=== PATIENT | female | born 1985 | race Caucasian/White ===

== ENCOUNTER 2020-07-07 13:57 | Emergency (ER) | payer OTHER ==
[2020-07-07 14:21] LABS: #Basophils 0.1 10x3/uL (0.0-0.2); #Eosinphils 0.1 10x3/uL (0.0-0.5); #Monocytes 0.5 10x3/uL (0.0-1.1); #Neutrophils 4.9 10x3/uL (1.5-8.4); %Basophils 0.7 % (0.0-2.0); %Eosinophils 1.2 % (0.0-6.0); %Lymphocytes 35.3 % (18.0-47.0); %Monocytes 6.1 % (0.0-10.0); %Neutrophils 56.4 % (40.0-75.0); Hemoglobin 16.2 g/dL (12.0-15.5); Mean Corpuscular HGB CONC 34.6 g/dL (32.0-36.0); Mean Corpuscular Hemoglobin 31.5 pg (27.0-33.0); Mean Corpuscular Volume 91.1 fl (81.6-98.3); Mean Platelet Volume 10.3 fl (7.4-10.4); Platelet Count 248 10x3/uL (150-450); RBC Distribution Width 12.3 % (11.5-14.5); Red Blood Cell (RBC) Count 5.14 10x6/uL (3.90-5.03); White Blood Cell (WBC) Count 8.7 10x3/uL (3.5-10.5)
[2020-07-07 14:28] LABS: ALT (SGPT) 16 U/L (8-55); AST (SGOT) 13 U/L (5-34); Alkaline Phosphatase 48 U/L (40-110); Anion Gap 16 mmol/L (10-20); BUN (Urea Nitrogen) 13 mg/dL (7.0-18.7); Bilirubin, Total 0.6 mg/dL (0.2-1.2); CK (CPK) 61 U/L (29-168); Calc. Creatinine Clearance 0 mL/min (70-130); Calcium 9.6 mg/dL (7.8-10.44); Carbon Dioxide 27 mmol/L (22-29); Chloride 99 mmol/L (98-107); Globulin 3.1 g/dL (2.4-3.5); Glucose 90 mg/dL (70-105); Lipase 42 U/L (8-78); Potassium 3.8 mmol/L (3.5-5.1); Protein, Total 8.1 g/dL (6.0-8.3); Sodium 138 mmol/L (136-145)
[2020-07-07] MEDS ORDERED: Ondansetron PF 4 MG/2 ML Vial ONE (14:32)
[2020-07-07] MEDS ORDERED: Pantoprazole 40 MG VIAL ONE (14:32)
[2020-07-07] MEDS ORDERED: Morphine 4 MG/ML VIAL ONE (14:32)
[2020-07-07 14:44] LABS: BHCG - Serum Negative (NEGATIVE); Pregs Control Background? CLEAR/WHITE (CLR/WHITE); Pregs Control Bar Appear? YES (CONTROL BAR)
[2020-07-07] MEDS ORDERED: Ketorolac Tromethamine 15 MG/ML VIAL ONE (15:09)
== END 2020-07-07 17:10 | disposition home or self-care (01) ==
LOC: CSHERS 13:57
DX: K52.9 Noninfective gastroenteritis and colitis, unspecified (principal)
CPT/HCPCS: 71045; 74177; 80053; 82550; 83690; 84484; 84703; 85025; 85379; 93005; 96372; 96374; 96375; C9113; J0500; J1885; J2270; J2405

== ENCOUNTER 2020-07-13 12:54 | Inpatient (IN) | payer OTHER ==
[2020-07-13 13:58] LABS: #Eosinphils 0.1 10x3/uL (0.0-0.5); #Monocytes 0.4 10x3/uL (0.0-1.1); #Neutrophils 3.1 10x3/uL (1.5-8.4); %Basophils 0.4 % (0.0-2.0); %Eosinophils 1.7 % (0.0-6.0); %Lymphocytes 33.8 % (18.0-47.0); %Monocytes 6.8 % (0.0-10.0); %Neutrophils 57.1 % (40.0-75.0); Hemoglobin 13.7 g/dL (12.0-15.5); Mean Corpuscular HGB CONC 34.3 g/dL (32.0-36.0); Mean Corpuscular Hemoglobin 31.6 pg (27.0-33.0); Mean Corpuscular Volume 92.4 fl (81.6-98.3); Mean Platelet Volume 11.3 fl (7.4-10.4); Platelet Count 171 10x3/uL (150-450); RBC Distribution Width 11.9 % (11.5-14.5); Red Blood Cell (RBC) Count 4.33 10x6/uL (3.90-5.03); White Blood Cell (WBC) Count 5.4 10x3/uL (3.5-10.5)
[2020-07-13 14:17] LABS: ALT (SGPT) 14 U/L (8-55); AST (SGOT) 17 U/L (5-34); Albumin 4.1 g/dL (3.5-5.0); Alkaline Phosphatase 34 U/L (40-110); Anion Gap 16 mmol/L (10-20); BUN (Urea Nitrogen) 7 mg/dL (7.0-18.7); Bilirubin, Total 0.5 mg/dL (0.2-1.2); Calc. Creatinine Clearance 0 mL/min (70-130); Calcium 9.1 mg/dL (7.8-10.44); Carbon Dioxide 21 mmol/L (22-29); Chloride 106 mmol/L (98-107); Globulin 2.8 g/dL (2.4-3.5); Glucose 69 mg/dL (70-105); Lipase 47 U/L (8-78); Potassium 4.5 mmol/L (3.5-5.1); Protein, Total 6.9 g/dL (6.0-8.3); Sodium 138 mmol/L (136-145)
[2020-07-13 14:20] LABS: BHCG - Serum Negative (NEGATIVE); Pregs Control Background? CLEAR/WHITE (CLR/WHITE); Pregs Control Bar Appear? YES (CONTROL BAR)
[2020-07-13] MEDS ORDERED: Morphine 4 MG/ML VIAL ONE (14:24)
[2020-07-13] MEDS ORDERED: Ondansetron PF 4 MG/2 ML Vial ONE (14:24)
[2020-07-13] MEDS: Morphine 2 MG/ML VIAL SLOW IVP PRN ×2 (18:42→23:06)
[2020-07-13] MEDS: Lactated Ringer's 1,000 ML IV SCH (18:42)
[2020-07-13] MEDS: Ondansetron PF 4 MG/2 ML Vial IVP PRN (18:42)
[2020-07-13] MEDS: Pantoprazole 40 MG VIAL IVP SCH (21:29)
[2020-07-14] MEDS: Ondansetron PF 4 MG/2 ML Vial IVP PRN ×2 (02:32→09:25)
[2020-07-14] MEDS ORDERED: Promethazine HCl 12.5 MG in Sodium Chloride 0.9% 50 ML IVPB SCH (04:15)
[2020-07-14 05:41] LABS: #Eosinphils 0.2 10x3/uL (0.0-0.5); #Monocytes 0.5 10x3/uL (0.0-1.1); #Neutrophils 4.9 10x3/uL (1.5-8.4); %Basophils 0.5 % (0.0-2.0); %Eosinophils 2.1 % (0.0-6.0); %Lymphocytes 24.4 % (18.0-47.0); %Neutrophils 65.9 % (40.0-75.0); Mean Corpuscular HGB CONC 34.1 g/dL (32.0-36.0); Mean Corpuscular Hemoglobin 31.9 pg (27.0-33.0); Mean Corpuscular Volume 93.6 fl (81.6-98.3); Mean Platelet Volume 10.9 fl (7.4-10.4); Platelet Count 149 10x3/uL (150-450); RBC Distribution Width 11.8 % (11.5-14.5); Red Blood Cell (RBC) Count 4.07 10x6/uL (3.90-5.03); White Blood Cell (WBC) Count 7.5 10x3/uL (3.5-10.5)
[2020-07-14 05:50] LABS: ALT (SGPT) 11 U/L (8-55); AST (SGOT) 14 U/L (5-34); Albumin 3.6 g/dL (3.5-5.0); Alkaline Phosphatase 30 U/L (40-110); Anion Gap 16 mmol/L (10-20); BUN (Urea Nitrogen) 8 mg/dL (7.0-18.7); Bilirubin, Total 0.5 mg/dL (0.2-1.2); Calc. Creatinine Clearance 96 mL/min (70-130); Calcium 8.5 mg/dL (7.8-10.44); Carbon Dioxide 18 mmol/L (22-29); Chloride 107 mmol/L (98-107); Globulin 2.4 g/dL (2.4-3.5); Potassium 4.3 mmol/L (3.5-5.1); Sodium 137 mmol/L (136-145)
[2020-07-14 05:58] LABS: Glucose 56 mg/dL (70-105)
[2020-07-14] MEDS: Lactated Ringer's 1,000 ML IV SCH ×2 (08:43→21:15)
[2020-07-14] MEDS: Pantoprazole 40 MG VIAL IVP SCH ×2 (08:43→21:15)
[2020-07-14] MEDS: Ondansetron ODT 4 MG TAB PO PRN ×2 (14:10→21:19)
[2020-07-14 15:31] LABS: SARS-CoV-2 PCR by NAA Not Detected (NotDetected)
[2020-07-14] MEDS ORDERED: GoLYTELY 4,000 ml Bottle PO SCH (19:15)
[2020-07-14] MEDS ORDERED: Promethazine HCl 12.5 MG in Sodium Chloride 0.9% 50 ML IVPB PRN (21:14)
[2020-07-15] MEDS: Pantoprazole 40 MG VIAL IVP SCH ×2 (09:31→22:09)
[2020-07-15] MEDS: Lactated Ringer's 1,000 ML IV SCH (10:22)
[2020-07-15] MEDS: Morphine 2 MG/ML VIAL SLOW IVP PRN (15:28)
[2020-07-15] MEDS ORDERED: PROPOFOL 40 ML ONE (18:38)
[2020-07-15] MEDS ORDERED: Lidocaine 2% PF 100 mg/5 ml Syringe ONE (19:06)
[2020-07-15] MEDS ORDERED: PROPOFOL 20 ML ONE (19:20)
[2020-07-15] MEDS: Ondansetron PF 4 MG/2 ML Vial IVP PRN (23:43)
[2020-07-16] MEDS ORDERED: Acetaminophen 325 MG TAB PO SCH ×2 (00:15→23:00)
[2020-07-16] MEDS: Lactated Ringer's 1,000 ML IV SCH ×2 (00:54→14:34)
[2020-07-16] MEDS ORDERED: Lactated Ringer's 1,000 ML IV SCH (08:00)
[2020-07-16] MEDS: Pantoprazole 40 MG VIAL IVP SCH ×2 (08:09→20:59)
[2020-07-16] MEDS: Ondansetron PF 4 MG/2 ML Vial IVP PRN ×3 (08:09→22:42)
[2020-07-16] MEDS: Morphine 2 MG/ML VIAL SLOW IVP PRN ×2 (10:45→14:35)
[2020-07-16 11:25] LABS: Complement-C4 12.9 mg/dL (15-57)
[2020-07-16 18:38] LABS: H. pylori IgA ABS Less than 9.0 units (0.0-8.9); H. pylori IgG ABS 0.12 (0.00-0.79); H. pylori IgM ABS Less than 9.0 units (0.0-8.9)
[2020-07-17 05:18] LABS: Anion Gap 11 mmol/L (10-20); BUN (Urea Nitrogen) 7 mg/dL (7.0-18.7); Calc. Creatinine Clearance 89 mL/min (70-130); Calcium 8.9 mg/dL (7.8-10.44); Carbon Dioxide 26 mmol/L (22-29); Chloride 107 mmol/L (98-107); Glucose 97 mg/dL (70-105); Potassium 4.4 mmol/L (3.5-5.1); Sodium 140 mmol/L (136-145)
[2020-07-17 05:28] VITALS: BMI 22.4
[2020-07-17] MEDS: Lactated Ringer's 1,000 ML IV SCH ×2 (06:31→22:08)
[2020-07-17] MEDS: Pantoprazole 40 MG VIAL IVP SCH ×2 (08:37→20:53)
[2020-07-17] MEDS: Ondansetron PF 4 MG/2 ML Vial IVP PRN (12:02)
[2020-07-17] MEDS: Morphine 2 MG/ML VIAL SLOW IVP PRN ×2 (14:26→20:53)
[2020-07-17 14:56] LABS: ANA Symphony (Qualitative) Negative (Negative); ANA Symphony (Quantitative) 0.1 Ratio (< 0.7 Negative); dsDNA IgG Antibody 2.4 IU/mL (<10 Negative)
[2020-07-17] MEDS ORDERED: Ketorolac Tromethamine 30 MG/ML VIAL IVP PRN ×2 (15:37→21:01)
[2020-07-17] MEDS ORDERED: HYDROcodone/Acetaminophen 5/325 mg Tablet PO PRN (15:38)
[2020-07-17] MEDS ORDERED: traMADol HCl 50 MG TAB PO PRN (21:02)
[2020-07-17] MEDS ORDERED: Acetaminophen 500 MG TAB PO PRN (21:02)
[2020-07-17] MEDS ORDERED: Scopolamine 1.5 mg/72 hour Patch TD SCH (21:30)
[2020-07-17] MEDS ORDERED: Ketorolac Tromethamine 30 MG/ML VIAL IVP SCH (21:30)
[2020-07-18] MEDS ORDERED: Ondansetron PF 4 MG/2 ML Vial ONE (07:17)
[2020-07-18] MEDS ORDERED: PROPOFOL 20 ML ONE (07:17)
[2020-07-18] MEDS ORDERED: Dexamethasone 20 MG/5 ML VIAL ONE (07:17)
[2020-07-18] MEDS ORDERED: Lidocaine 2% PF 100 mg/5 ml Syringe ONE (07:18)
[2020-07-18] MEDS ORDERED: PHENYLEPHRINE-NS 100 MCG/ML 10 ML SYRINGE ONE (07:18)
[2020-07-18] MEDS ORDERED: Succinylcholine 200 MG/10 ml SYRINGE FS ONE (07:18)
[2020-07-18] MEDS ORDERED: EPINEPHrine 1 MG/ML AMP ONE (07:21)
[2020-07-18] MEDS ORDERED: Fentanyl 100 MCG/2 ML VIAL ONE ×3 (07:22→09:48)
[2020-07-18] MEDS ORDERED: Bupivacaine PF 0.5% 30 ML VIAL ONE (07:22)
[2020-07-18] MEDS ORDERED: Ibuprofen 600 MG TAB PO PRN (08:13)
[2020-07-18] MEDS ORDERED: Ketorolac Tromethamine 15 MG/ML VIAL ONE (08:37)
[2020-07-18] MEDS ORDERED: Esmolol 100 MG/10 ML VIAL ONE (08:40)
[2020-07-18] MEDS ORDERED: Fentanyl 250 MCG/5 ML VIAL ONE (08:48)
[2020-07-18] MEDS: Lactated Ringer's 1,000 ML IV SCH (09:08)
[2020-07-18] MEDS ORDERED: Ketorolac Tromethamine 30 MG/ML VIAL ONE (09:24)
[2020-07-18 12:37] VITALS: BP 144/88; TEMP 98.1
[2020-07-18] MEDS: Ondansetron ODT 4 MG TAB PO PRN (13:11)
[2020-07-21 15:16] LABS: Cytoplasmic (C-ANCA) <1:20 titer (Neg:<1:20); Myeloperoxidase AutoAbs <9.0 U/mL (0.0-9.0); Perinuclear (P-ANCA) <1:20 titer (Neg:<1:20); Proteinase-3 AutoAbs Less than 3.5 U/mL (0.0-3.5)
== END 2020-07-18 15:29 | disposition home or self-care (01) | DRG 419 ==
LOC: CSHERS 12:54 → CSHTELE 16:15 → OBSVTOIN 16:16
PROVIDERS: ADMIT Family Medicine; ATTEND Family Medicine
PROC: 0DB88ZX Excision of Small Intestine, Via Natural or Artificial Opening Endoscopic, Diagnostic (ICD-10-PCS; principal; 2020-07-15)
PROC: 0FT44ZZ Resection of Gallbladder, Percutaneous Endoscopic Approach (ICD-10-PCS; 2020-07-15)
PROC: 0DBN8ZX Excision of Sigmoid Colon, Via Natural or Artificial Opening Endoscopic, Diagnostic (ICD-10-PCS; 2020-07-18)
DX: K82.8 Other specified diseases of gallbladder (principal); Z20.822 Contact with and (suspected) exposure to COVID-19; N80.9 Endometriosis, unspecified; R11.2 Nausea with vomiting, unspecified; K44.9 Diaphragmatic hernia without obstruction or gangrene; R63.4 Abnormal weight loss; Z68.22 Body mass index [BMI] 22.0-22.9, adult
CPT/HCPCS: 36415; 36416; 71045; 74018; 74174; 74250; 76705; 78227; 80048; 80053; 82533; 83520; 83630; 83690; 84703; 85025; 86038; 86140; 86160; 86225; 86256; 87045; 87046; 87338; 87427; 87449; 87635; 88304; 88305; 96374; 96375; A9537; C9113; J0171; J1100; J1610; J1885; J1956; J2001; J2270; J2405; J2550; J2704; J3010; J7120; Q0162; S0020; U0003; U0005

== ENCOUNTER 2021-07-20 09:02 | Outpatient (CLI) | payer BC | END 2021-07-20 09:03 | disposition home or self-care (01) | LOC: CSHMAMMO 09:02 | PROVIDERS: ATTEND Obstetrics & Gynecology | DX: Z12.31 Encounter for screening mammogram for malignant neoplasm of breast (principal); Z98.82 Breast implant status | CPT/HCPCS: 77063; 77067 ==

== ENCOUNTER 2024-01-25 08:57 | Outpatient (CLI) | payer BC | END 2024-01-25 08:58 | disposition home or self-care (01) | LOC: CSHMAMMO 08:57 | PROVIDERS: ATTEND Obstetrics & Gynecology | DX: Z12.31 Encounter for screening mammogram for malignant neoplasm of breast (principal); Z98.82 Breast implant status | CPT/HCPCS: 77063; 77067 ==